=== PATIENT | male | born 1975 | race Caucasian/White ===

== ENCOUNTER 2020-12-29 23:37 | Emergency (ER) | payer BC ==
[~2020-12-29] VITALS: Ht 170.2 cm; Wt 88.6 kg
[2020-12-29 23:59] VITALS: BP 139/79
--- NOTE | 2020-12-30 02:09 | PHYS DOC ---
Past Medical History Past Surgical History: No Surgical History General Adult EDM: Chief Complaint: LOWER EXT PAIN HPI: HPI: 45-year-old male with no significant past medical history presents to the ED with complaints of " lots of foot pain" for the past 2 weeks stating pain is localized to the bottom of his heel, right worse than left. States he is wearing new shoes. Stands at work for 12 hours/day. Denies any associated trauma. Denies any physical activity or excessive exercise. Is here requesting analgesia. Was triaged with lower extremity swelling but denies any leg or calf swelling. Review of Systems: Review of Systems: Constitutional: Denies fever or chills. [] Eyes: Denies change in visual acuity. [] HENT: Denies nasal congestion or sore throat. [] Respiratory: Denies cough or shortness of breath. [] Cardiovascular: Denies chest pain or edema. [] GI: Denies nausea, vomiting, Musculoskeletal: Denies joint deformity/swelling/rash Integument: Denies rash or diaphoresis Neurologic: Denies focal weakness or sensory changes. [] Psychiatric: Denies depression or anxiety. [] Heart Score: C/O Chest Pain: No Risk Factors: Risk Factors: DM, Current or recent (<one month) smoker, HTN, HLP, family history of CAD, obesity. Risk Scores: Score 0 - 3: 2.5% MACE over next 6 weeks - Discharge Home Score 4 - 6: 20.3% MACE over next 6 weeks - Admit for Clinical Observation Score 7 - 10: 72.7% MACE over next 6 weeks - Early Invasive Strategies Allergies: Allergies: Allergies Coded Allergies Type Severity Reaction Last Updated Verified bee venom protein (honey bee) Allergy Unknown 12/30/20 Yes Physical Exam: PE: Constitutional: Well developed, well nourished, no acute distress, non-toxic appearance. HENT: Normocephalic, atraumatic, Eyes: EOMI, conjunctiva normal, no discharge. Neck: Normal range of motion, supple, Cardiovascular: S1/2 present, regular rhythm Lungs & Thorax: Speaking in full sentences, bilateral equal chest rise, no tachypnea or increased work of breathing Skin: Warm, dry, no erythema, no rash. [] Extremities: Cannot reproduce bilateral heel tenderness, no plantar ecchymosis, equal DP/PT pulses, cap refill less than 1 second, equal L5/S1 sensation intact, bears weight with no antalgic gait, no pain at knee or ankle joint Neurologic: Alert and oriented X 3, normal motor function, normal sensory function, no focal deficits noted. [] Psychologic: Affect normal, judgement normal, mood normal. [] Current Patient Data: Vital Signs: Vital Signs Date Time Temp Pulse Resp B/P (MAP) Pulse Ox O2 Delivery O2 Flow Rate FiO2 12/29/20 23:59 98.3 90 16 139/79 97 Room Air 98.3 EKG: EKG: [] Radiology/Procedures: Radiology/Procedures: [] Course & Med Decision Making: Course & Med Decision Making Pertinent Labs and Imaging studies reviewed. (See chart for details) Concern for atraumatic heel pain. Work shows present in ED and do not appear to be the most supportive for standing all day-I recommended a different type of supportive shoe (danskos) and [id number] analgesia. Will discharge home with strict ED return precautions were given for severe pain, injury, joint swelling or fever. Encouraged urgent outpatient follow-up with PMD and podiatry. Life-threatening processes were considered but are low suspicion at this time, given history, physical exam and ED workup. Pt was educated on all prescription medications and adverse effects. All patient's questions were answered and pt was stable at time of discharge. Life/limb-threatening differential includes but is not limited to, trauma (fracture, dislocation, laceration, compartment syndrome, tendon or ligament injury), neurovascular injury or deficitcva/tia, infection (osteomyelitis, abscess, cellulitis, septic arthritis, necrotizing fasciitis), deep vein thrombosis, renal/cardiac/liver disease, medication adverse effect, lymphedema/anasarca, vascular insufficiency or malignancy, I have spoken with the patient and/or caregivers. I explained the patient's condition, diagnoses and treatment plan based on the information available to me at this time. I have answered the patient and/or caregiver's questions and addressed any concerns. The patient and/or caregivers have a good understanding of patient's diagnosis, condition and treatment plan as can be expected at this point. Vital signs have been stable. Patient's condition is stable and appropriate for discharge from the emergency department. Patient will pursue further outpatient evaluation with primary care physician or other designated or consulting physician as outlined in the discharge instructions. The patient and/or caregivers are agreeable to this plan of care and follow-up instructions have been explained in detail. The patient and/or caregivers have received these instructions in written form and have expressed an understanding of the discharge instructions. The patient and/or caregivers are aware that any significant change of condition or worsening of symptoms should prompt immediate return to this or the closest emergency department or call to 911. Isaiah Disclaimer: Draglety Disclaimer: This electronic medical record was generated, in whole or in part, using a voice recognition dictation system. Departure Departure Impression: Primary Impression: Heel pain, bilateral Disposition: HOME / SELF CARE / HOMELESS Condition: STABLE Referrals: NO PCP (PCP) Follow-up with your primary care physician in 24 to 48 hours OR FOLLOW UP WITH FAMILY MEDICINE: [address] [facility] [place] [address] Patient Instructions: Heel Compression Syndrome with [facility] Additional Instructions: FOLLOW UP WITH PODIATRY: FOR DEFINITIVE MANAGEMENT Podiatric Surgery [address] [facility], [facility] [address] [place] [address] EMERGENCY DEPARTMENT GENERAL DISCHARGE INSTRUCTIONS Thank you for coming to [facility] Emergency Department (ED) today and trusting us with you care. We trust that you had a positive experience in our Emergency Department. If you wish to speak to the department management, you may call the Director at [phone]. YOUR FOLLOW UP INSTRUCTIONS ARE FOLLOWS: 1. Do you have a private Doctor? If you do not have a private doctor, please ask for a resource list of physicians or clinics that may be able to assist you with follow up care. 2. The Emergency Physicain has interpreted your x-rays. The X-Ray specialist will also review them. If there is a change in the findings, you will be notified in 48 hours when at all possible. 3. A lab test or culture has been done, your results will be reviewed and you will be notified if you need a change in treatment. ADDITIONAL INSTRUCTIONS AND INFORMATION: 1. Your care today has been supervised by a physician who is specially trained in emergency care. Many problems require more than one evaluation for a complete diagnosis and treatment. We recommend that you schedule your follow up appointment as recommended to ensure complete treatment of you illness or injury. If you are unable to obtain follow up care and continue to have a problem, or if your condition worsens, we recommend that you return to the ED. 2. We are not able to safely determine your condition over the phone nor are we able to give sound medical advice over the phone. For these safety reasons, if you call for medical advice we will ask you to come to the ED for further evaluation. 3. If you have any questions regarding these discharge instructions please call the ED at [phone]. SAFETY INFORMATION: In the interest of safety, wellness, and injury prevention; we encourage you to wear your sealbelt, if you smoke; quite smoking, and we encourage family to use a protective helmet for bicycling and other sporting events that present an increased risk for head injury. IF YOUR SYMPTOMS WORSEN OR NEW SYMPTOMS DEVELOP, OR YOU HAVE CONCERNS ABOUT YOUR CONDITION; OR IF YOUR CONDITION WORSENS WHILE YOU ARE WAITING FOR YOUR FOLLOW UP APPOINTMENT; EITHER CONTACT YOUR PRIMARY CARE DOCTOR, THE PHYSICIAN WHOSE NAME AND NUMBER YOU WERE GIVEN, OR RETURN TO THE ED IMMEDIATELY. CALIXTO CANTU DO Dec 30, 2020 02:09
--- NOTE | 2020-12-30 06:55 | RAD ---
EXAM: Bilateral calcaneus 2 views. HISTORY: Bilateral heel pain. COMPARISON: None. FINDINGS: No fractures are identified. The subtalar joints are unremarkable. There are small posterio r calcaneal spurs bilaterally. IMPRESSION: 1. Small posterior calcaneal spurs bilaterally. Electronically signed by: Marilee Martines MD (12/30/2020 6:52 AM) [facility]
== END 2020-12-30 03:08 | disposition home or self-care (01) ==
LOC: ER 23:37
DX: M79.672 Pain in left foot (principal); M79.671 Pain in right foot; Z91.030 Bee allergy status
CPT/HCPCS: 99283; 73650-50